=== PATIENT | male | born 1950 | race Caucasian/White ===

== ENCOUNTER → 2017-08-02 | Outpatient (CLI) | payer MEDICARE, OTHER ==
--- NOTE | 2017-08-02 13:35 | CTL ---
EXAMINATION TYPE: CT Low Dose Lung DATE OF EXAM ORDERED: 08/02/2017 HISTORY: Tobacco abuse. Lung cancer screening CT DLP: [address] CTDI: 2.3 mGy Automated exposure control for dose reduction was used. SCREENING VISIT: First screening visit COMPARISON: 07/29/2015 TECHNIQUE: Low dose computed tomography scan was performed through the chest at 1 mm thick sections a nd reconstructed images in the coronal plane at [address] DIAGNOSTIC QUALITY: Satisfactory FINDINGS: LUNG NODULES: Left a nodule with a size of 2 mm. Nodule Type: Solid that is Nodule state: Unchanged in comparison t o exam of 2014 likely representing a perifissural lymph node but regardless should be considered vanessa gn on image # CT Image slide number [id number] of series 4. LUNGS: COPD: Severity: None Fibrosis: Severity: None Lymph nodes: No adenopathy greater than 1 cm. Subcarinal 8mm lymph node is noted, nonenlarged. RIGHT PLEURAL SPACE: Effusion: None Calcification: None Thickening: None Pneumothorax: None LEFT PLEURAL SPACE: Effusion: None Calcification: None Thickening: None Pneumothorax: None HEART: Heart Size: Within normal limits Coronary calcification: Severe three-vessel coronary calcifications are seen Pericardial effusion: None OTHER FINDINGS: Upper abdomen: Unenhanced images of the upper abdomen are unremarkable. Bony thorax: Mild multilevel degenerative changes of the thoracic spine are seen. Supraclavicular region: Unremarkable. No adenopathy. IMPRESSION: Lung RADS 2-Single left nodule with a very low likelihood of becoming a clinically active cancer due to size and lack of growth. FOLLOW UP CT CHEST RECOMMENDATION: Continued annual screening low dose CT is recommended in [address] LUNG RAD: 2
== END | disposition home or self-care (01) ==
LOC: RADCTMAIN 12:17
PROVIDERS: ATTEND Family Medicine
DX: Z12.2 Encounter for screening for malignant neoplasm of respiratory organs (principal); R91.1 Solitary pulmonary nodule; Z87.891 Personal history of nicotine dependence

== ENCOUNTER → 2019-11-14 | Outpatient (CLI) | payer MEDICARE, OTHER ==
--- NOTE | 2019-11-14 09:08 | US ---
EXAMINATION TYPE: US prostate transrectal DATE OF EXAM: 11/14/2019 COMPARISON: NONE CLINICAL HISTORY: Z80.42 Fam hx prostate ca; nighttime urinary frequency This examination was performed using the transrectal probe. EXAM MEASUREMENTS: Gland Size: 3.8 x 4.0 x 2.8cm Volume: 22.2ml Predicted PSA: 2.7 Actual PSA (if available):No PSA done per Dr. Catalina Carlos's Office phone call this morning. Gland size appears wnl as volume is less than 0.0ml. Seminal vesicles are within normal limits. Prostate gland is heterogeneous in appearance but measures within normal limits in size. No suspicious nodules are seen. IMPRESSION: Unremarkable study. Predicted PSA = volume x 0.12 ng/ml Calculated Volume = 0.5236 x L x W x H
== END | disposition home or self-care (01) ==
LOC: RADUSWWP 07:41
PROVIDERS: ATTEND Family Medicine
DX: Z12.5 Encounter for screening for malignant neoplasm of prostate (principal); Z80.42 Family history of malignant neoplasm of prostate
CPT/HCPCS: 76872

== ENCOUNTER → 2019-11-18 | Day surgery (SDC) | payer MEDICARE, OTHER ==
[2019-11-14 10:15] VITALS: BMI 27.3
[~2019-11-18] MED LIST: INSULIN ASPART (NovoLOG) 100 UNIT/ML VIAL SQ ONE; LACTATED RINGERS 1,000 ML IV ONE; LACTATED RINGERS 1,000 ML IV SCH; LIDOCAINE 1% (10MG/ML) FOR IV START INTRADERMA PRN; LIDOCAINE 1% INJ 10MG/ML (20 ML MDV) ONE; PROPOFOL 10 MG/ML 20 ML VIAL IV ONE
[2019-11-18 07:22] VITALS: TEMP 97.4
[2019-11-18 07:31] LABS: Glucose,Whole Blood 277 mg/dL (75-99)
[2019-11-18 08:16] LABS: Glucose,Whole Blood 304 mg/dL (75-99)
--- NOTE | 2019-11-18 08:19 | P.PCN ---
Date of Procedure: 11/18/19 Description of Procedure: BRIEF HISTORY: Patient is a 69-year-old male who presents for outpatient colonoscopy for a personal history of colon polyps. The patient denies any change in bowel habits, blood per rectum or family history of colon cancer. Last colonoscopy 3- 4 years ago per his recollection. PROCEDURE PERFORMED: Colonoscopy with polypectomy. PREOPERATIVE DIAGNOSIS: Personal history of colon polyps, last colonoscopy 3-4 years ago per the patient's recollection. ESTIMATED BLOOD LOSS: Minimal. IV sedation per Anesthesia. PROCEDURE: After informed consent was obtained, the patient, was brought into the endoscopy unit. IV sedation was administered by Anesthesia under continuous monitoring. Digital rectal examination was normal. Initially the Olympus CF-190 flexible video colonoscope was then inserted in the rectum, gradually advanced into the cecum without any difficulty. Careful examination was performed as the scope was gradually being withdrawn. Ileocecal valve and the appendiceal orifice were visualized and appeared normal. Prep was excellent. Mucosa of the cecum, ascending colon, transverse colon, descending colon, sigmoid colon, and rectum appeared normal. 6 mm flat transverse colon polyp removed with cold snare polypectomy. 2 diminutive polyps measuring 2 mm in size removed from the hepatic flexure and sigmoid colon with cold forceps . A few scattered smallmouth diverticula noted in the sigmoid colon. Retroflexion was performed in the rectum and no lesions were seen. The patient tolerated the procedure well. IMPRESSION: Small flat transverse colon polyp removed with cold snare polypectomy. 2 diminutive polyps removed from the hepatic flexure and sigmoid colon with cold forcep polypectomy. Mild sigmoid diverticulosis. RECOMMENDATIONS: Findings of this examination were discussed with the patient and his . Okay to resume diet. Okay to resume medications. Would recommend repeat colonoscopy in 5 years pending pathology from polypectomies for personal history of colon polyps.
[2019-11-18 08:35] VITALS: BP 156/87; PULSE 66; RESP 16
== END ==
LOC: ORWHC2ENDO 07:06
PROVIDERS: ATTEND Internal Medicine
DX: Z12.11 Encounter for screening for malignant neoplasm of colon (principal); D12.5 Benign neoplasm of sigmoid colon; D12.3 Benign neoplasm of transverse colon; K57.30 Diverticulosis of large intestine without perforation or abscess without bleeding; Z86.010 Personal history of colon polyps; I10 Essential (primary) hypertension; E78.5 Hyperlipidemia, unspecified; E11.9 Type 2 diabetes mellitus without complications; M10.9 Gout, unspecified; Z85.828 Personal history of other malignant neoplasm of skin; Z87.891 Personal history of nicotine dependence; Z79.82 Long term (current) use of aspirin; Z79.84 Long term (current) use of oral hypoglycemic drugs; Z79.899 Other long term (current) drug therapy; Z88.2 Allergy status to sulfonamides
CPT/HCPCS: 88305; 45380; 45385; J2001; J2704